=== PATIENT | female | born 1960 | race Caucasian/White ===

== ENCOUNTER 2022-11-11 16:10 | Outpatient (OUT) | payer BC, SELFPAY ==
--- NOTE | 2022-11-11 16:25 | XR_ITS ---
[address] [address] Patient Name: MATTHEW IVEY MRN: [id number] date: 1960 Sex: F Assigned Patient Location: [facility] Current Patient Location: Accession/Order Number: [id number] Exam Date: 11/11/2022 16:28 Report Date: 11/12/2022 07:19 At the request of: ROSELYN NORTH Procedure: XR shoulder RT min 2V PROCEDURE: XR shoulder RT min 2V COMPARISON: None. HISTORY: Shoulder Pain, Right FINDINGS: BONES:No fracture, acute abnormality, or significant arthropathy. Cervical fusion hardware SOFT TISSUES:Negative. No visible soft tissue swelling. EFFUSION:None visible. OTHER: Negative. XR/XR shoulder RT min 2V IMPRESSION: No acute radiographic abnormality Electronically authenticated by: OMARI IRAHETA Date: 11/12/2022 07:19
--- NOTE | 2022-11-11 16:37 | XR_ITS ---
The [address] [address] Patient Name: MATTHEW IVEY MRN: [id number] date: 1960 Sex: F Assigned Patient Location: [facility] Current Patient Location: [facility] Accession/Order Number: [id number] Exam Date: 11/11/2022 16:28 Report Date: 11/12/2022 07:30 At the request of: ROSELYN NORTH Procedure: XR cervical spine 2-3V EXAMINATION: XR cervical spine 2-3V HISTORY: Neck and Shoulder Pain COMPARISON: No relevant comparison available. FINDINGS: BONES: Reversal of normal cervical lordosis. 4 mm anterolisthesis of C3 in relation to C4. Anterior fusion C5-C7 with no mechanical failure. Moderate degenerative spondylosis and facet osteoarthropathy DISC SPACES: Fusion C5-C7. Multilevel narrowing with disc collapse and endplate sclerosis C4-C5 PARASPINOUS: Negative. No paraspinous abnormality is seen. OTHER: Negative. XR/XR cervical spine 2-3V IMPRESSION: Moderate to severe degenerative changes with reversal of cervical lordosis Electronically authenticated by: OMARI IRAHETA Date: 11/12/2022 07:30
== END 2022-11-11 16:11 | disposition home or self-care (01) ==
PROVIDERS: PCP Family Medicine; Visit Provider Nurse Practitioner Family
DX: M50.30 Other cervical disc degeneration, unspecified cervical region (principal); M25.511 Pain in right shoulder; M47.812 Spondylosis without myelopathy or radiculopathy, cervical region; M48.8X2 Other specified spondylopathies, cervical region
CPT/HCPCS: 72040; 73030